=== PATIENT | male | born 1980 | race Caucasian/White ===

== ENCOUNTER 2019-08-24 13:23 | Inpatient (IN) | payer OTHER ==
[2019-08-24 14:00] VITALS: BMI 27.8
--- NOTE | 2019-08-24 16:32 | HP ---
COWS - Scale Resting Pulse: 0= [place] 80 or Below Sweatin= No chills or Flushing Restless Observation: 0= Sits Still Pupil Size: 0= Normal to Room Light Bone or Joint Aches: 0= None Runny Nose/ Eye Tearin= None GI Upset > 30mins: 0= None Tremor Observation: 0= None Yawning Observation: 0= None Anxiety or Irritability: 0= None Goose Flesh Skin: 0=Smooth Skin COWS Score: 0 CIWA Score - Admission Criteria OASAS Guidelines: Admission for Medically Managed Detox: Requires at least one of the followin. CIWA greater than 12 2. Seizures within the past 24 hours 3. Delirium tremens within the past 24 hours 4. Hallucinations within the past 24 hours 5. Acute intervention needed for co occurring medical disorder 6. Acute intervention needed for co occurring psychiatric disorder 7. Severe withdrawal that cannot be handled at a lower level of care (continued vomiting, continued diarrhea, abnormal vital signs) requiring intravenous medication and/or fluids 8. Admitting History and Physical - Admission History Source: Patient Limitations to Obtaining History: No Limitations - Past Medical History Pulmonary: Yes: Asthma - Past Surgical History Past Surgical History: Yes: None - Smoking History Have you smoked in the past 12 months: No - Alcohol/Substance Use History of Substance Use: reports: Cocaine, Heroin, Marijuana - Social History Usual Living Arrangement: Yes: With Parent Admission [facility] Allergies/Adverse Reactions: Allergies Allergy/AdvReac Type Severity Reaction Status Date / Time No Known Allergies Allergy Verified 08/24/19 13:51 History of Present Illness: 38 y.o. M PMH asthma presenting for heroin rehab. Patient has been to a detox program in the past, left AMA, felt he didn't need the remainder of his detox. Heroin: Last used this morning, 2 bags, did not use yesterday. Uses IV. Says not daily use. Has been using since age 11. In [facility], 50mg last picked up 5 days ago. Cocaine: 2-4g/$350 per day. Uses IV. Has been using for 1 year. Marijuana: uses once in a while PSH: R knee arthroscopy 2005 Social hx: currently living w/ his mom. 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 All: none Meds: albuterol inhaler Exam Limitations: No Limitations - Ebola screening Have you traveled outside of the country in the last 21 days: No Have you had contact with anyone from an Ebola affected area: No Do you have a fever: No - Review of Systems Constitutional: No Symptoms Reported EENT: reports: No Symptoms Reported Respiratory: reports: No Symptoms reported Cardiac: reports: No Symptoms Reported GI: reports: No Symptoms Reported : reports: No Symptoms Reported Musculoskeletal: reports: No Symptoms Reported Integumentary: reports: No Symptoms Reported Neuro: reports: No Symptoms reported Endocrine: reports: No Symptoms Reported Hematology: reports: No Symptoms Reported Psychiatric: reports: No Sypmtoms Reported Patient History - Patient Medical History Hx Anemia: No Hx Asthma: Yes Hx Chronic Obstructive Pulmonary Disease (COPD): No Hx Cancer: No Hx Cardiac Disorders: No Hx Congestive Heart Failure: No Hx Hypertension: No Hx Hypercholesterolemia: No Hx Pacemaker: No HX Cerebrovascular Accident: No Hx Seizures: No Hx Dementia: No Hx Diabetes: No Hx Gastrointestinal Disorders: No Hx Liver Disease: No Hx Genitourinary Disorders: No Hx Sexually Transmitted Disorders: No Hx Renal Disease (ESRD): No Hx Thyroid Disease: No Hx Human Immunodeficiency Virus (HIV): No Hx Hepatitis C: No Hx Depression: No Hx Suicide Attempt: No Hx Bipolar Disorder: No Hx Schizophrenia: No - Patient Surgical History Past Surgical History: No - Smoking Cessation Smoking history: Never smoked - Substance & Tx. History Substance Use Type: Cocaine, Heroin, Marijuana - Substances abused Heroin Substance route: Injection Frequency: 1-2 times per week Amount used: 2 bags Age of first use: 11 Date of last use: 08/24/19 Cocaine Substance route: Injection Frequency: Daily Amount used: $350 Age of first use: 11 Date of last use: 08/24/19 Admission Physical Exam S - Vital Signs Vital Signs: Vital Signs - 24 hr 08/24/19 13:47 Temperature 97.1 F L Pulse Rate 55 L Respiratory 20 Rate Blood Pressure 112/73 - Physical General Appearance: Yes: Within Normal Limits, No Apparent Distress HEENTM: Yes: Hearing grossly Normal, Normal ENT Inspection, Normocephalic, HERMAN , Pharynx Normal Respiratory: Yes: Lungs Clear, Normal Breath Sounds, No Respiratory Distress, No Accessory Muscle Use Neck: Yes: Within Normal Limits Cardiology: Yes: Regular Rhythm, Regular Rate, S1, S2 Abdominal: Yes: Normal Bowel Sounds, Non Tender, Soft Musculoskeletal: Yes: full range of Motion, Gait Steady Extremities: Yes: Normal Range of Motion Neurological: Yes: marketing consultant II-XII NML intact, Fully Oriented, Alert, Normal Mood/ Affect (hands, feet) Integumentary: Yes: Track Zapien - Diagnostic (1) Heroin abuse Current Visit: Yes Status: Chronic (2) Cocaine abuse Current Visit: Yes Status: Chronic (3) Asthma Current Visit: Yes Status: Chronic Qualifiers: Asthma severity: mild Asthma persistence: persistent Breathalyzer - Breathalyzer Breathalyzer: 0 Urine Drug Screen - Test Device Lot number: [id number] Expiration date: 05/10/21 - Control Is test valid?: Yes - Results Drug screen NEGATIVE: No Urine drug screen results: THC-Marijuana, REINA-Cocaine, FEN-Fentanyl, MOP-Opiates , MTD-Methadone Inpatient Rehab Admission - Rehab Decision to Admit Inpatient rehab admission?: Yes - Initial Determination Are CD services needed?: Yes Free of communicable disease: Yes Not in need of hospitalization: Yes - Rehab Admission Criteria Previous failed treatment: No Poor recovery environment: No Comorbidities: No Lacks judgement: Yes Patient is meeting Inpatient Rehab admission criteria:: Yes
--- NOTE | 2019-08-24 16:44 | PN ---
"Teaching Attending Note Name of Resident: Candy Philippe ATTENDING PHYSICIAN STATEMENT I saw and evaluated the patient. I reviewed the resident's note and discussed the case with the resident. I agree with the resident's findings and plan as documented. SUBJECTIVE: 38 y.o. male here report use of heroin since age 11 , was in various [facility] programs x 4 years, ltest 08/20/19 w/ 50 mg , did not return to program since and states is not planning to , reports iv use 2 bags this morning , denies w/d symptoms at this time , reports IV cocaine 350 $/week x 1 year cannabis : occasional use . PMH asthma PSH: R knee arthroscopy 2005 OBJECTIVE: wnwd , NAD Vital Signs - 24 hr 08/24/19 13:47 Temperature 97.1 F L Pulse Rate 55 L Respiratory 20 Rate Blood Pressure 112/73 Search Terms: riineo davis, 1980 Search Date: 08/24/2019 04:43:52 PM This report was requested by: Andree Potts | Reference #: [id number] There are no results for the search terms that you entered. ASSESSMENT AND PLAN: OUD / Cocaine dependence - rehab"
[2019-08-24] MEDS ORDERED: ACETAMINOPHEN 325 MG TABLET (FP) PO PRN (16:59)
[2019-08-24] MEDS ORDERED: LOPERAMIDE HCL 2 MG CAPSULE PO PRN (16:59)
[2019-08-24] MEDS ORDERED: MAGNESIUM HYDROX 2400MG/30ML ORAL SUSPENSION 30 ML CUP PO PRN (16:59)
[2019-08-24] MEDS ORDERED: MAG HYDROX/AL HYDROX/SIMETH 30 ML UNIT-DOSE CUP PO PRN (16:59)
[2019-08-24] MEDS ORDERED: guaiFENesin 200 MG/10 ML 10 ML UNIT-DOSE CUPS PO PRN (16:59)
[2019-08-24] MEDS ORDERED: MENTHOL/PHENOL 1 EACH UD MM PRN (16:59)
[2019-08-24] MEDS ORDERED: P-EPHED 60MG/TRIPROLIDI 2.5MG TABLET PO PRN (16:59)
[2019-08-24] MEDS ORDERED: IBUPROFEN 400 MG TABLET (FP) PO PRN (16:59)
[2019-08-24] MEDS ORDERED: MAGNESIUM CITRATE 300 ML BOTTLE PO PRN (16:59)
[2019-08-24] MEDS ORDERED: ALBUTEROL SO4 8 GM HFA INHALER IH PRN (19:38)
[2019-08-24] MEDS: THIAMINE HCL 100 MG TABLET (FP) PO SCH (21:41)
[2019-08-24] MEDS: MELATONIN 5 MG TABLETS PO PRN (21:42)
[2019-08-25] MEDS ORDERED: METHADONE HCL 10 MG TABLET PO ONE ×2 (07:27→11:15)
[2019-08-25 10:24] LABS: PH,URINE 6.5 (5.0-8.0); URINE APPEARANCE CLEAR; URINE BILIRUBIN NEGATIVE (NEGATIVE); URINE COLOR YELLOW; URINE GLUCOSE (UA) NEGATIVE (NEGATIVE); URINE KETONE TRACE (NEGATIVE); URINE LEUK ESTERASE NEGATIVE (NEGATIVE); URINE NITRITE NEGATIVE (NEGATIVE); URINE PROTEIN NEGATIVE (NEGATIVE)
[2019-08-25 10:26] LABS: ALBUMIN 3.8 g/dl (3.4-5.0); BILIRUBIN,TOTAL 0.5 mg/dL (0.2-1); BLOOD UREA NITROGEN 8.6 mg/dL (7-18); CALCIUM 9.8 mg/dL (8.5-10.1); POTASSIUM 3.6 mmol/L (3.5-5.1); TOT PROT 7.5 g/dl (6.4-8.2)
[2019-08-25 10:39] LABS: HEMATOCRIT 39.7 % (35.4-49); HEMOGLOBIN 13.2 GM/dL (11.7-16.9); MCH 28.2 pg (25.7-33.7); MCHC 33.2 g/dl (32.0-35.9); MEAN PLT VOLUME 8.7 fl (7.5-11.1); PLATELET COUNT 229 K/MM3 (134-434); RBC 4.67 M/mm3 (4.00-5.60); WHITE BLOOD COUNT 4.4 K/mm3 (4.0-10.0)
[2019-08-25] MEDS: PRENATAL VITAMINS W/ FOLIC ACID TABLET (FP) PO SCH (11:14)
--- NOTE | 2019-08-25 13:08 | PN ---
BHS COWS - Scale Resting Pulse: 0= [place] 80 or Below Sweatin= Chills/Flushing Restless Observation: 0= Sits Still Pupil Size: 0= Normal to Room Light Bone or Joint Aches: 1= Mild Discomfort Runny Nose/ Eye Tearin= None GI Upset > 30mins: 0= None Tremor Observation of Outstretched Hands: 0= None Yawning Observation: 1= 1-2x During Session Anxiety or Irritability: 1=Feels Anxious/Irritable Goose Flesh Skin: 0=Smooth Skin COWS Score: 4 BHS Progress Note (SOAP) Subjective: Patient admitted to rehab for opiod dependence. [facility]. Patient relapsed 5 days ago and stopped taking methadone. Admitted to rehab and to be slowly increased back to 50mg daily dose of methadone. Patient to receive 20mg today. However, states he does not want to go back to [facility] and would like to be referred to another clinic in [place], [place]. Patient states he does not want to take more than 20mg of methadone daily and is refusing to be increased to 50mg a day. [facility] called by provider and MD was unavailable as he was with patients however, message left with clinic to have provider call back [facility]. ROS: feels tired, mild body aches, chills and anxiety Objective: 08/25/19 13:24 Vital Signs Temperature 98 F 08/25/19 06:45 Pulse Rate 53 L 08/25/19 06:45 Respiratory Rate 16 08/25/19 06:45 Blood Pressure 107/70 08/25/19 06:45 O2 Sat by Pulse Oximetry (%) Laboratory Tests 08/24/19 08/24/19 08/24/19 08:30 08:30 08:30 WBC 4.4 RBC 4.67 Hgb 13.2 Hct 39.7 MCV 85.0 MCH 28.2 MCHC 33.2 RDW 14.0 Plt Count 229 MPV 8.7 Sodium 140 Potassium 3.6 Chloride 102 Carbon Dioxide 33 H Anion Gap 5 L BUN 8.6 Creatinine 1.0 Est GFR (CKD-EPI)AfAm 110.17 Est GFR (CKD-EPI)NonAf 95.05 Random Glucose 126 H Calcium 9.8 Total Bilirubin 0.5 AST 14 L ALT 11 L Alkaline Phosphatase 61 Total Protein 7.5 Albumin 3.8 Urine Color Urine Appearance Urine pH Ur Specific [place] Urine Protein Urine Glucose (UA) Urine Ketones Urine Blood Urine Nitrite Urine Bilirubin Urine Urobilinogen Ur Leukocyte Esterase RPR Titer Nonreactive 08/25/19 08:30 WBC RBC Hgb Hct MCV MCH MCHC RDW Plt Count MPV Sodium Potassium Chloride Carbon Dioxide Anion Gap BUN Creatinine Est GFR (CKD-EPI)AfAm Est GFR (CKD-EPI)NonAf Random Glucose Calcium Total Bilirubin AST ALT Alkaline Phosphatase Total Protein Albumin Urine Color Yellow Urine Appearance Clear Urine pH 6.5 Ur Specific [place] 1.027 Urine Protein Negative Urine Glucose (UA) Negative Urine Ketones Trace H Urine Blood Negative Urine Nitrite Negative Urine Bilirubin Negative Urine Urobilinogen 1.0 Ur Leukocyte Esterase Negative RPR Titer PE: alert and oriented x 3 skin warm and dry +perrla eoms intact bl neck supple no jvd gi nt, nd ext no tremors, amb ad segun Assessment: 08/25/19 13:26 [facility] Opiod dependence Plan: Case discussed with Dr. Cobb and informed patient is refusing to be increased on MTD to daily dose of 50mg daily. MD agrees to keep patient on MTD 20mg daily Counselor SooYoung notified regarding referral to [facility] program to assist with connection Continue to monitor clinically
[2019-08-25] MEDS: MELATONIN 5 MG TABLETS PO PRN (21:18)
[2019-08-25] MEDS: THIAMINE HCL 100 MG TABLET (FP) PO SCH (21:18)
[2019-08-26] MEDS ORDERED: METHADONE HCL 10 MG TABLET PO SCH (06:00)
[2019-08-26] MEDS ORDERED: METHADONE HCL 10 MG TABLET PO ONE (06:00)
[2019-08-26 06:56] VITALS: BP 132/73; PULSE 57; TEMP 97.8
[2019-08-26] MEDS: PRENATAL VITAMINS W/ FOLIC ACID TABLET (FP) PO SCH (09:11)
--- NOTE | 2019-08-26 09:30 | DS ---
[facility] Rehab Discharge Summary - [facility] Rehab Discharge Summary Admission Date: 08/24/19 Discharge Date: 08/26/19 - History Present History: Cocaine dependence, [facility]MTP - Discharge Physical Exam Vital Signs: Vital Signs Temperature 97.8 F 08/26/19 06:55 Pulse Rate 57 L 08/26/19 06:55 Respiratory Rate 18 08/26/19 06:55 Blood Pressure 132/73 08/26/19 06:55 O2 Sat by Pulse Oximetry (%) Pertinent Admission Physical Exam Findings: Laboratory Last Values WBC 4.4 K/mm3 (4.0-10.0) 08/24/19 08:30 RBC 4.67 M/mm3 (4.00-5.60) 08/24/19 08:30 Hgb 13.2 GM/dL (11.7-16.9) 08/24/19 08:30 Hct 39.7 % (35.4-49) 08/24/19 08:30 MCV 85.0 fl (80-96) 08/24/19 08:30 MCH 28.2 pg (25.7-33.7) 08/24/19 08:30 MCHC 33.2 g/dl (32.0-35.9) 08/24/19 08:30 RDW 14.0 % (11.9-15.9) 08/24/19 08:30 Plt Count 229 K/MM3 (134-434) 08/24/19 08:30 MPV 8.7 fl (7.5-11.1) 08/24/19 08:30 Sodium 140 mmol/L (136-145) 08/24/19 08:30 Potassium 3.6 mmol/L (3.5-5.1) 08/24/19 08:30 Chloride 102 mmol/L (98-107) 08/24/19 08:30 Carbon Dioxide 33 mmol/L (21-32) H 08/24/19 08:30 Anion Gap 5 MMOL/L (8-16) L 08/24/19 08:30 BUN 8.6 mg/dL (7-18) 08/24/19 08:30 Creatinine 1.0 mg/dL (0.55-1.3) 08/24/19 08:30 Est GFR (CKD-EPI)AfAm 110.17 08/24/19 08:30 Est GFR (CKD-EPI)NonAf 95.05 08/24/19 08:30 Random Glucose 126 mg/dL (74-106) H 08/24/19 08:30 Calcium 9.8 mg/dL (8.5-10.1) 08/24/19 08:30 Total Bilirubin 0.5 mg/dL (0.2-1) 08/24/19 08:30 AST 14 U/L (15-37) L 08/24/19 08:30 ALT 11 U/L (13-61) L 08/24/19 08:30 Alkaline Phosphatase 61 U/L (45-117) 08/24/19 08:30 Total Protein 7.5 g/dl (6.4-8.2) 08/24/19 08:30 Albumin 3.8 g/dl (3.4-5.0) 08/24/19 08:30 Urine Color Yellow 08/25/19 08:30 Urine Appearance Clear 08/25/19 08:30 Urine pH 6.5 (5.0-8.0) 08/25/19 08:30 Ur Specific [place] 1.027 (1.010-1.035) 08/25/19 08:30 Urine Protein Negative (NEGATIVE) 08/25/19 08:30 Urine Glucose (UA) Negative (NEGATIVE) 08/25/19 08:30 Urine Ketones Trace (NEGATIVE) H 08/25/19 08:30 Urine Blood Negative (NEGATIVE) 08/25/19 08:30 Urine Nitrite Negative (NEGATIVE) 08/25/19 08:30 Urine Bilirubin Negative (NEGATIVE) 08/25/19 08:30 Urine Urobilinogen 1.0 mg/dL (0.2-1.0) 08/25/19 08:30 Ur Leukocyte Esterase Negative (NEGATIVE) 08/25/19 08:30 RPR Titer Nonreactive (NONREACTIVE) 08/24/19 08:30 - Treatment Discharge Condition: Discharge condition good - Medication Discharge Medications: Ambulatory Orders Albuterol Sulfate Inhaler - [Ventolin Hfa Inhaler -] 2 inh PO Q4H PRN 08/24/19 - Medication-Assisted Treatment (MAT) Medication-Assisted Treatment (MAT): No - Discharge Instructions Diet, activity, other medical instructions: Diet:Regular Activity: No restrictions Other medical instructions:Albuterol as needed - Diagnosis (1) Methadone maintenance therapy patient Current Visit: Yes Status: Acute (2) Asthma Current Visit: Yes Status: Chronic Qualifiers: Asthma severity: mild Asthma persistence: persistent (3) Cocaine abuse Current Visit: Yes Status: Chronic - Follow-up Referral Minutes to complete discharge: 30 - AMA Did Patient Leave Against Medical Advice: No Additional Comments: Patient discharged early as per request, he is medically stable, he will follow up in outpatient treatment at [facility].
[2019-08-27] MEDS ORDERED: METHADONE HCL 40 MG DISPERSABLE TABLET PO ONE (06:00)
[2019-08-28] MEDS ORDERED: METHADONE HCL 10 MG TABLET PO SCH (06:00)
[2019-08-28] MEDS ORDERED: METHADONE 40 MG, METHADONE 10 MG PO SCH (06:00)
== END 2019-08-26 09:20 | disposition home or self-care (01) | DRG 772 ==
LOC: YASAS 13:23 → Y3W 17:05
PROVIDERS: ADMIT Neuromusculoskeletal Medicine & OMM; ATTEND Neuromusculoskeletal Medicine & OMM
PROC: HZ42ZZZ Group Counseling for Substance Abuse Treatment, Cognitive-Behavioral (ICD-10-PCS; principal; 2019-08-24)
DX: F11.20 Opioid dependence, uncomplicated (principal); F12.10 Cannabis abuse, uncomplicated; J45.909 Unspecified asthma, uncomplicated
CPT/HCPCS: 36415; 80053; 81003; 85027; 86593

== ENCOUNTER 2020-05-20 10:22 | Inpatient (IN) | payer OTHER ==
--- NOTE | 2020-05-20 10:58 | BHS.RME ---
Substance Use & Tx History - Substance Use History Heroin Substance amount: one bundle Frequency of use: Daily Substance route: Injection (ex: intravenous or skin popping) Date of Last Use: 05/20/20 (first use age 12 y. No Od, Has Narcan at home) Cocaine- Powder Substance amount: 10 bags Frequency of use: Daily Substance route: Injection (ex: intravenous or skin popping) Date of Last Use: 05/19/20 (First use age 12 y) Marijuana/Hashish Substance amount: one joint Frequency of use: Once a month Date of Last Use: 05/16/20 (First use age 10 y) Physical/Psych/Mental Status - Behavior General Behavior: Increased activity (restlessness, agitation) Eye Contact: Normal - Cooperativeness Cooperativeness: Cooperative - Thinking Thought Processes: Tight Thought content: Future oriented - Physical Health Problems Is patient presently having any pain?: No Does patient presently have any injuries (include location): No Does patient currently have a fever: No COWS - Scale Resting Pulse: 0= [place] 80 or Below Sweatin=Flushed/Facial Moisture Restless Observation: 1= Difficult to Sit Still Pupil Size: 1= Pupils >than Normal Bone or Joint Aches: 0= None Runny Nose/ Eye Tearin= None GI Upset > 30mins: 0= None Tremor Observation: 0= None Yawning Observation: 0= None Anxiety or Irritability: 1=Feels Anxious/Irritable Goose Flesh Skin: 0=Smooth Skin COWS Score: 5
[2020-05-20 12:17] VITALS: BMI 24.3
--- NOTE | 2020-05-20 12:31 | HP ---
COWS - Scale Resting Pulse: 0= [place] 80 or Below Sweatin=Flushed/Facial Moisture Restless Observation: 1= Difficult to Sit Still Pupil Size: 1= Pupils >than Normal Bone or Joint Aches: 0= None Runny Nose/ Eye Tearin= None GI Upset > 30mins: 0= None Tremor Observation: 0= None Yawning Observation: 0= None Anxiety or Irritability: 1=Feels Anxious/Irritable Goose Flesh Skin: 0=Smooth Skin COWS Score: 5 CIWA Score - Admission Criteria OASAS Guidelines: Admission for Medically Managed Detox: Requires at least one of the followin. CIWA greater than 12 2. Seizures within the past 24 hours 3. Delirium tremens within the past 24 hours 4. Hallucinations within the past 24 hours 5. Acute intervention needed for co occurring medical disorder 6. Acute intervention needed for co occurring psychiatric disorder 7. Severe withdrawal that cannot be handled at a lower level of care (continued vomiting, continued diarrhea, abnormal vital signs) requiring intravenous medication and/or fluids 8. Admitting History and Physical - Admission Chief Complaint: Mr. Ca is a 39 yo gentleman who presents to [facility] requesting detox for heroin, cocaine and marijuana use disorder. History of Present Illness: Mr. Ca is a 39 yo gentleman who presents to [facility] requesting detox for heroin, cocaine and marijuana use disorder. He was last here on 03/11/20 but left before medical evaluation was complete. PMH: Asthma PSH: Appendectomy, right knee arthroscopy Psych: NO SOC: Senior Living: [place] Legal: none - Substance Use History Heroin Substance amount: one bundle Frequency of use: Daily Substance route: Injection (ex: intravenous or skin popping) Date of Last Use: 05/20/20 (first use age 12 y. No Od, Has Narcan at home) Cocaine- Powder Substance amount: 10 bags Frequency of use: Daily Substance route: Injection (ex: intravenous or skin popping) Date of Last Use: 05/19/20 (First use age 12 y) Marijuana/Hashish Substance amount: one joint Frequency of use: Once a month Date of Last Use: 05/16/20 (First use age 10 y) Mr. Ca meets admission criteria due to high risk of relapse, poor recovery environment. History Source: Patient Limitations to Obtaining History: No Limitations - Past Medical History Pulmonary: Yes: Asthma - Past Surgical History Past Surgical History: Yes: None - Smoking History Smoking history: Never smoked Have you smoked in the past 12 months: No - Alcohol/Substance Use History of Substance Use: reports: Cocaine, Heroin, Marijuana Admission ROS [facility] - [facility] Allergies/Adverse Reactions: Allergies Allergy/AdvReac Type Severity Reaction Status Date / Time No Known Allergies Allergy Verified 05/20/20 12:13 Exam Limitations: No Limitations - Ebola screening Have you traveled outside of the country in the last 21 days: No Have you been sick,other than usual withdrawal symptoms: No Do you have a fever: No - Review of Systems Constitutional: No Symptoms Reported EENT: reports: No Symptoms Reported Respiratory: reports: No Symptoms reported Cardiac: reports: No Symptoms Reported GI: reports: No Symptoms Reported : reports: No Symptoms Reported Musculoskeletal: reports: No Symptoms Reported Integumentary: reports: No Symptoms Reported Hematology: reports: No Symptoms Reported Psychiatric: reports: Anxious Patient History - Patient Medical History Hx Anemia: No Hx Asthma: Yes Hx Chronic Obstructive Pulmonary Disease (COPD): No Hx Cancer: No Hx Cardiac Disorders: No Hx Congestive Heart Failure: No Hx Hypertension: No Hx Hypercholesterolemia: No Hx Pacemaker: No HX Cerebrovascular Accident: No Hx Seizures: No Hx Dementia: No Hx Diabetes: No Hx Gastrointestinal Disorders: No Hx Liver Disease: No Hx Genitourinary Disorders: No Hx Sexually Transmitted Disorders: No Hx Renal Disease (ESRD): No Hx Thyroid Disease: No Hx Human Immunodeficiency Virus (HIV): No Hx Hepatitis C: No Hx Depression: No Hx Suicide Attempt: No Hx Bipolar Disorder: No Hx Schizophrenia: No - Patient Surgical History Past Surgical History: No Hx Neurologic Surgery: No Hx Cataract Extraction: No Hx Cardiac Surgery: No Hx Lung Surgery: No Hx Breast Surgery: No Hx Breast Biopsy: No Hx Abdominal Surgery: No Hx Appendectomy: No Hx Cholecystectomy: No Hx Genitourinary Surgery: No Hx Section: No Hx Orthopedic Surgery: No Anesthesia Reaction: No - Smoking Cessation Smoking history: Never smoked Have you smoked in the past 12 months: No Hx Chewing Tobacco Use: No Initiated information on smoking cessation: No - Substances abused Heroin Substance route: Injection Frequency: Daily Amount used: 1 bundle Age of first use: 12 Date of last use: 05/20/20 Cocaine Substance route: Injection Frequency: Daily Amount used: 1 bundle Age of first use: 12 Date of last use: 05/18/20 Marijuana/Hashish Substance route: Smoking Frequency: 1-2 times per week Amount used: 1 blunt Age of first use: 9 Date of last use: 05/18/20 Admission Physical Exam [facility] - Vital Signs Vital Signs: Vital Signs - 24 hr 05/20/20 12:13 Temperature 97.7 F Pulse Rate 45 L Respiratory 18 Rate Blood Pressure 159/80 - Physical General Appearance: Yes: No Apparent Distress, Nourished, Appropriately Dressed HEENTM: Yes: EOMI, Hearing grossly Normal, Normocephalic, Normal Voice Respiratory: Yes: Lungs Clear, Normal Breath Sounds, No Respiratory Distress, No Accessory Muscle Use Neck: Yes: Within Normal Limits, Supple Breast: Yes: Breast Exam Deferred Cardiology: Yes: Regular Rhythm, Regular Rate, S1, S2 Abdominal: Yes: Normal Bowel Sounds, Non Tender, Flat, Soft Genitourinary: Yes: Other (deferred) Back: Yes: Normal Inspection Musculoskeletal: Yes: full range of Motion, Gait Steady, Pelvis Stable Extremities: Yes: Normal Inspection, Non-Tender Neurological: Yes: Fully Oriented, Alert, Normal Response Integumentary: Yes: Within Normal Limits - Diagnostic (1) Opioid withdrawal Current Visit: Yes Status: Acute (2) Cannabis abuse Current Visit: Yes Status: Acute (3) Asthma Current Visit: No Status: Chronic Qualifiers: Asthma severity: mild Asthma persistence: persistent (4) Cocaine abuse Current Visit: Yes Status: Acute Cleared for Admission [facility] - Detox or Rehab [facility] Level of Care: Medically Managed Breathalyzer - Breathalyzer Breathalyzer: 0 Urine Drug Screen - Test Device Lot number: [id number] Expiration date: 05/14/22 - Control Is test valid?: Yes - Results Drug screen NEGATIVE: No Urine drug screen results: THC-Marijuana, REINA-Cocaine, FEN-Fentanyl, MOP-Opiates Inpatient Rehab Admission - Rehab Decision to Admit Inpatient rehab admission?: No
[2020-05-20] MEDS ORDERED: cloNIDine HCL 0.1 MG TABLET PO PRN (12:33)
[2020-05-20] MEDS ORDERED: ONDANSETRON *ODT* 4 MG TABLET SL PRN (12:33)
[2020-05-20] MEDS ORDERED: MAGNESIUM HYDROX 2400MG/30ML ORAL SUSPENSION 30 ML CUP PO PRN (12:33)
[2020-05-20] MEDS ORDERED: ALBUTEROL SO4 HFA INHALER IH PRN (12:33)
[2020-05-20] MEDS ORDERED: BISMUTH SUBSALICYLATE 262 MG/15 ML BTL PO PRN (12:33)
[2020-05-20] MEDS ORDERED: METHADONE HCL 10 MG TABLET (FOR DETOX USE ONLY) PO ONE (12:33)
[2020-05-20] MEDS ORDERED: MAGNESIUM CITRATE 300 ML BOTTLE PO PRN (12:33)
[2020-05-20] MEDS ORDERED: METHOCARBAMOL 500 MG TABLET PO PRN (12:33)
[2020-05-20] MEDS ORDERED: MAG HYDROX/AL HYDROX/SIMETH 30 ML UNIT-DOSE CUP PO PRN (12:33)
[2020-05-20] MEDS ORDERED: IBUPROFEN 400 MG TABLET (FP) PO PRN (12:33)
[2020-05-20] MEDS ORDERED: MENTHOL/PHENOL 1 EACH UD MM PRN (12:33)
[2020-05-20] MEDS ORDERED: ACETAMINOPHEN 325 MG TABLET (FP) PO PRN ×2 (12:33)
--- NOTE | 2020-05-20 13:29 | EKG ---
Test Reason : Blood Pressure : / mmHG Vent. Rate : 042 BPM Atrial Rate : 042 BPM P-R Int : 152 ms QRS Dur : 110 ms QT Int : 468 ms P-R-T Axes : 058 055 025 degrees QTc Int : 390 ms MARKED SINUS BRADYCARDIA ABNORMAL ECG NO PREVIOUS ECGS AVAILABLE Confirmed by Irasema Pérez ([id number]) on 05/20/2020 1:29:13 PM Referred By: Confirmed By:Irasema Pérez
[2020-05-20] MEDS: hydrOXYzine PAMOATE 25 MG CAPSULE (FP) PO SCH ×3 (13:47→22:44)
[2020-05-20 14:18] LABS: HEMATOCRIT 39.6 % (35.4-49); HEMOGLOBIN 12.9 GM/dL (11.7-16.9); MCH 28.6 pg (25.7-33.7); MCHC 32.7 g/dl (32.0-35.9); MEAN CELL VOLUME 87.6 fl (80-96); MEAN PLT VOLUME 8.4 fl (7.5-11.1); PLATELET COUNT 292 K/MM3 (134-434); RBC 4.52 M/mm3 (4.00-5.60); RDW 14.2 % (11.9-15.9); WHITE BLOOD COUNT 5.6 K/mm3 (4.0-10.0)
[2020-05-20 14:30] LABS: BILIRUBIN,TOTAL 0.5 mg/dL (0.2-1); CALCIUM 9.6 mg/dL (8.5-10.1); POTASSIUM 4.1 mmol/L (3.5-5.1); TOT PROT 7.9 g/dl (6.4-8.2)
[2020-05-20 14:51] LABS: BLOOD UREA NITROGEN 9.2 mg/dL (7-18); CREATININE 1.1 mg/dL (0.55-1.3)
[2020-05-20] MEDS ORDERED: MELATONIN 5 MG TABLETS PO SCH (22:00)
[2020-05-20] MEDS ORDERED: THIAMINE HCL 100 MG TABLET (FP) PO SCH (22:00)
[2020-05-21 06:26] VITALS: TEMP 97.5
[2020-05-21] MEDS: hydrOXYzine PAMOATE 25 MG CAPSULE (FP) PO SCH (06:56)
[2020-05-21 09:12] VITALS: BP 143/88; PULSE 50
[2020-05-21] MEDS ORDERED: METHADONE (DETOX) 20 MG, METHADONE (DETOX) 5 MG PO ONE (10:00)
[2020-05-21] MEDS ORDERED: PRENATAL VITAMINS W/ FOLIC ACID TABLET (FP) PO SCH (10:00)
--- NOTE | 2020-05-21 10:21 | DS ---
[facility] Detox Discharge Summary Admission Date: 05/20/20 Discharge Date: 05/21/20 - History Present History: Opioid Dependence Additional Comments: 39 years old male admitted on 05/20/20 for opiate withdrawal sx management treated with methadone detox regiment mr davis states that he is in the methadone program taking methadone 80mg po daily last dose 05/17/20 mr davis prefers returning to methadone program continue taking 80mg po daily urine tox positive for day and mop mr davis states that such low dose of methadone "not working" mr davis said that he went to a detox facility where rejected him due to methadone maintenance program of 80mg mr davis refuses staff to call the methadone program rather "I go there myself" General Appearance: Yes: No Apparent Distress, Nourished, Appropriately Dressed HEENTM: Yes: EOMI, Hearing grossly Normal, Normocephalic, Normal Voice Respiratory: Yes: Lungs Clear, Normal Breath Sounds, No Respiratory Distress, No Accessory Muscle Use Neck: Yes: Within Normal Limits, Supple Breast: Yes: Breast Exam Deferred Cardiology: Yes: Regular Rhythm, Regular Rate, S1, S2 Abdominal: Yes: Normal Bowel Sounds, Non Tender, Flat, Soft Genitourinary: Yes: Other (deferred) Back: Yes: Normal Inspection Musculoskeletal: Yes: full range of Motion, Gait Steady, Pelvis Stable Extremities: Yes: Normal Inspection, Non-Tender Neurological: Yes: Fully Oriented, Alert, Normal Response Integumentary: Yes: Within Normal Limits Pertinent Past History: time for discharge 54 minutes treatment team met with mr davis to discuss 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 perhaps routine discharge may serve the purpose of in patient stay 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, 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 "go out and use" therefor against medical advice is appropriated - Physical Exam Results Vital Signs: Vital Signs Temperature 97.5 F L 05/21/20 08:51 Pulse Rate 50 L 05/21/20 08:51 Respiratory Rate 18 05/21/20 08:51 Blood Pressure 143/88 05/21/20 08:51 O2 Sat by Pulse Oximetry (%) 99 05/21/20 06:25 Pertinent Admission Physical Exam Findings: opiate withdrawal Laboratory Tests 05/20/20 05/20/20 05/20/20 11:35 11:35 11:35 WBC 5.6 RBC 4.52 Hgb 12.9 Hct 39.6 MCV 87.6 MCH 28.6 MCHC 32.7 RDW 14.2 Plt Count 292 D MPV 8.4 Sodium 142 Potassium 4.1 Chloride 107 Carbon Dioxide 28 Anion Gap 7 L BUN 9.2 Creatinine 1.1 Est GFR (CKD-EPI)AfAm 97.49 Est GFR (CKD-EPI)NonAf 84.12 Random Glucose 128 H Calcium 9.6 Total Bilirubin 0.5 AST 11 L ALT 12 L Alkaline Phosphatase 63 Total Protein 7.9 Albumin 4.0 Syphilis Serology COVID-19 ([facility]) HIV Ag/Ab Combo Qual Negative 05/20/20 05/20/20 11:35 14:00 WBC RBC Hgb Hct MCV MCH MCHC RDW Plt Count MPV Sodium Potassium Chloride Carbon Dioxide Anion Gap BUN Creatinine Est GFR (CKD-EPI)AfAm Est GFR (CKD-EPI)NonAf Random Glucose Calcium Total Bilirubin AST ALT Alkaline Phosphatase Total Protein Albumin Syphilis Serology Non-reactive COVID-19 ([facility]) Not detected HIV Ag/Ab Combo Qual glucose serum elevation follow up with methadone program - Treatment Hospital Course: Detox Protocol Followed, Discharged Condition Good, Rehab Referral Accepted Patient has Accepted a Rehab Referral to: methadone maintenance program - Medication Discharge Medications: Ambulatory Orders Albuterol Sulfate Inhaler - [Ventolin Hfa Inhaler -] 2 inh PO Q4H PRN 08/24/19 Naloxone HCl [Narcan] 4 mg NS ASDIR PRN #1 spray 05/21/20 - Diagnosis (1) Opioid withdrawal Current Visit: Yes Status: Acute (2) Methadone maintenance therapy patient Current Visit: Yes Status: Chronic (3) Asthma Current Visit: Yes Status: Chronic Qualifiers: Asthma severity: mild Asthma persistence: intermittent Asthma complication type: with status asthmaticus Qualified Code(s): J45.22 - Mild intermittent asthma with status asthmaticus - AMA Did Patient Leave Against Medical Advice: Yes COWS (PN) - Opiate Withdrawal Resting Pulse: 0= [place] 80 or Below Sweatin= No chills or Flushing Restless Observation: 0= Sits Still Pupil Size: 0= Normal to Room Light Bone or Joint Aches: 1= Mild Discomfort Runny Nose/ Eye Tearin= None GI Upset > 30mins: 0= None Tremor Observation of Outstretched Hands: 1= Tremor [place], Not Seen Yawning Observation: 0= None Anxiety or Irritability: 1=Feels Anxious/Irritable Goose Flesh Skin: 0=Smooth Skin COWS Score: 3
[2020-05-22] MEDS ORDERED: METHADONE HCL 10 MG TABLET (FOR DETOX USE ONLY) PO ONE (10:00)
[2020-05-23] MEDS ORDERED: METHADONE (DETOX) 10 MG, METHADONE (DETOX) 5 MG PO ONE (10:00)
[2020-05-24] MEDS ORDERED: METHADONE HCL 10 MG TABLET (FOR DETOX USE ONLY) PO ONE (10:00)
[2020-05-25] MEDS ORDERED: METHADONE HCL 5 MG TABLET (FOR DETOX USE ONLY) PO ONE (06:00)
== END 2020-05-21 09:40 | disposition left against medical advice (07) | DRG 770 ==
LOC: YASAS 10:22 → Y3N 12:34
PROVIDERS: ADMIT Allergy & Immunology; ATTEND Allergy & Immunology
PROC: HZ2ZZZZ Detoxification Services for Substance Abuse Treatment (ICD-10-PCS; principal; 2020-05-20)
DX: F11.23 Opioid dependence with withdrawal (principal); F14.20 Cocaine dependence, uncomplicated; F12.10 Cannabis abuse, uncomplicated; J45.20 Mild intermittent asthma, uncomplicated
CPT/HCPCS: 36415; 80053; 85027; 86780; 87389; 93005; 93010; U0003

== ENCOUNTER 2020-12-05 16:23 | Inpatient (IN) | payer OTHER ==
[2020-12-05 21:03] VITALS: BMI 20.2
[2020-12-05] MEDS ORDERED: MAGNESIUM HYDROX 2400MG/30ML ORAL SUSPENSION 30 ML CUP PO PRN (21:15)
[2020-12-05] MEDS ORDERED: MENTHOL/PHENOL 1 EACH UD MM PRN (21:15)
[2020-12-05] MEDS ORDERED: DICYCLOMINE HCL 10 MG CAPSULE PO PRN (21:15)
[2020-12-05] MEDS ORDERED: IBUPROFEN 400 MG TABLET (FP) PO PRN (21:15)
[2020-12-05] MEDS ORDERED: METHOCARBAMOL 500 MG TABLET PO PRN (21:15)
[2020-12-05] MEDS ORDERED: ACETAMINOPHEN 325 MG TABLET (FP) PO PRN ×2 (21:15)
[2020-12-05] MEDS ORDERED: guaiFENesin 200 MG/10 ML 10 ML UNIT-DOSE CUPS PO PRN (21:15)
[2020-12-05] MEDS ORDERED: ONDANSETRON *ODT* 4 MG TABLET SL PRN (21:15)
[2020-12-05] MEDS ORDERED: MAGNESIUM CITRATE 300 ML BOTTLE PO PRN (21:15)
[2020-12-05] MEDS ORDERED: BISMUTH SUBSALICYLATE 524 MG/30 ML UD PO PRN (21:15)
[2020-12-05] MEDS ORDERED: P-EPHED 60MG/TRIPROLIDI 2.5MG TABLET PO PRN (21:15)
[2020-12-05] MEDS ORDERED: MAG HYDROX/AL HYDROX/SIMETH 30 ML UNIT-DOSE CUP PO PRN (21:15)
[2020-12-05] MEDS: hydrOXYzine PAMOATE 25 MG CAPSULE (FP) PO SCH (23:17)
[2020-12-05] MEDS: MELATONIN 5 MG TABLETS PO SCH (23:18)
[2020-12-05] MEDS: THIAMINE HCL 100 MG TABLET (FP) PO SCH (23:25)
[2020-12-06] MEDS: hydrOXYzine PAMOATE 25 MG CAPSULE (FP) PO SCH ×5 (05:47→23:24)
[2020-12-06] MEDS: PRENATAL VITAMINS W/ FOLIC ACID TABLET (FP) PO SCH (10:12)
[2020-12-06] MEDS ORDERED: cloNIDine HCL 0.1 MG TABLET PO PRN (10:18)
[2020-12-06] MEDS ORDERED: NALOXONE HCL 0.4 MG/ML VIAL IM PRN (10:18)
[2020-12-06] MEDS ORDERED: METHADONE HCL 10 MG TABLET (FOR DETOX USE ONLY) PO ONE (10:30)
[2020-12-06 11:54] LABS: HEMATOCRIT 39.7 % (35.4-49); HEMOGLOBIN 13.3 GM/dL (11.7-16.9); MCH 29.5 pg (25.7-33.7); MCHC 33.5 g/dl (32.0-35.9); MEAN CELL VOLUME 87.9 fl (80-96); PLATELET COUNT 248 K/MM3 (134-434); RBC 4.52 M/mm3 (4.00-5.60); RDW 15.1 % (11.9-15.9)
[2020-12-06 12:08] LABS: POTASSIUM 3.5 mmol/L (3.5-5.1)
[2020-12-06 12:41] LABS: ALBUMIN 3.1 g/dl (3.4-5.0)
[2020-12-06 12:44] LABS: BLOOD UREA NITROGEN 10.1 mg/dL (7-18); CALCIUM 8.9 mg/dL (8.5-10.1)
[2020-12-06 12:47] LABS: BILIRUBIN,TOTAL 0.8 mg/dL (0.2-1); CREATININE 0.8 mg/dL (0.55-1.3)
[2020-12-06 12:48] LABS: TOT PROT 6.3 g/dl (6.4-8.2)
[2020-12-06 14:21] LABS: URINE APPEARANCE CLOUDY; URINE BILIRUBIN NEGATIVE (NEGATIVE); URINE COLOR DK YELLOW; URINE GLUCOSE (UA) NEGATIVE (NEGATIVE); URINE KETONE TRACE (NEGATIVE); URINE LEUK ESTERASE NEGATIVE (NEGATIVE); URINE NITRITE NEGATIVE (NEGATIVE); URINE PROTEIN NEGATIVE (NEGATIVE)
[2020-12-06] MEDS: MELATONIN 5 MG TABLETS PO SCH (23:24)
[2020-12-06] MEDS: THIAMINE HCL 100 MG TABLET (FP) PO SCH (23:24)
[2020-12-07] MEDS: hydrOXYzine PAMOATE 25 MG CAPSULE (FP) PO SCH ×2 (07:16→09:50)
[2020-12-07 09:40] VITALS: BP 140/82; PULSE 96; TEMP 97.5
[2020-12-07] MEDS ORDERED: METHADONE HCL 5 MG TABLET (FOR DETOX USE ONLY) ONE (09:49)
[2020-12-07] MEDS ORDERED: METHADONE HCL 10 MG TABLET (FOR DETOX USE ONLY) ONE (09:49)
[2020-12-07] MEDS: PRENATAL VITAMINS W/ FOLIC ACID TABLET (FP) PO SCH (09:50)
[2020-12-07] MEDS ORDERED: METHADONE (DETOX) 20 MG, METHADONE (DETOX) 5 MG PO ONE (10:00)
[2020-12-08] MEDS ORDERED: METHADONE HCL 10 MG TABLET (FOR DETOX USE ONLY) PO ONE (10:00)
[2020-12-09] MEDS ORDERED: METHADONE (DETOX) 10 MG, METHADONE (DETOX) 5 MG PO ONE (10:00)
[2020-12-10] MEDS ORDERED: METHADONE HCL 10 MG TABLET (FOR DETOX USE ONLY) PO ONE (10:00)
[2020-12-11] MEDS ORDERED: METHADONE HCL 5 MG TABLET (FOR DETOX USE ONLY) PO ONE (06:00)
== END 2020-12-07 10:34 | disposition left against medical advice (07) | DRG 770 ==
LOC: YASAS 16:23 → Y3N 21:11
PROVIDERS: ADMIT Allergy & Immunology; ATTEND Allergy & Immunology
PROC: HZ2ZZZZ Detoxification Services for Substance Abuse Treatment (ICD-10-PCS; principal; 2020-12-05)
DX: F11.23 Opioid dependence with withdrawal (principal); F14.20 Cocaine dependence, uncomplicated; F12.20 Cannabis dependence, uncomplicated; F19.280 Other psychoactive substance dependence with psychoactive substance-induced anxiety disorder; F19.24 Other psychoactive substance dependence with psychoactive substance-induced mood disorder; J45.20 Mild intermittent asthma, uncomplicated; B18.2 Chronic viral hepatitis C; Z86.2 Personal history of diseases of the blood and blood-forming organs and certain disorders involving the immune mechanism; Z87.891 Personal history of nicotine dependence; Z59.0 Homelessness
CPT/HCPCS: 36415; 80053; 81003; 85027; 86780; 93005; 93010; C9803; U0003